=== PATIENT | male | born 1990 | race Caucasian/White ===

== ENCOUNTER → 2020-02-11 | Outpatient (CLI) | payer OTHER ==
--- NOTE | 2020-02-16 10:12 | SLEEPCENT ---
DATE: 02/11/2020 ORDERED BY: Flor [place], [facility]. Nocturnal polysomnography was performed for evaluation of sleep physiology. Eight hours and 54 minutes of data were reviewed. There were 438 minutes of sleep identified. Sleep latency was prolonged at 84 minutes. REM latency was mildly prolonged at 143 minutes. Sleep architecture improved once established. There were four REM cycles with some mild fragmentation and occasional arousals. Overall sleep efficiency was 83%. The electrocardiogram showed a sinus rhythm with an average heart rate of 76 beats per minute, rate range 60 to 104. EEG showed normal waveforms for wake and sleep stages. There were no focal events identified. There were 55 respiratory events identified of 10 seconds in duration or greater for an apnea-hypopnea index of 7.5. The events were obstructive and not exclusive to sleep stage. More frequent, but not exclusive to the supine posture, arousals were seen 12.5 times per hour when arousals from snoring were included, and oxygen desaturations were seen into the 70s. There was some limb activity, but limb movement arousals were few. Snoring was noted over the course of the entire study. IMPRESSION: Obstructive sleep apnea syndrome (G47.33), apnea-hypopnea index 7.5. RECOMMENDATION: The patient should be encouraged to return to the sleep disorder center for pressure therapy. In the interim, alcohol and sedative avoidance should be practiced and caution exercised during the operation of motor vehicles. MTDD
== END ==
LOC: M SLEEP 20:00
PROVIDERS: ATTEND Physician Assistant Medical
DX: G47.33 Obstructive sleep apnea (adult) (pediatric) (principal)